=== PATIENT | female | born 1975 | race Caucasian/White ===

== ENCOUNTER 2018-05-14 00:26 | Emergency (ER) | payer OTHER ==
[~2018-05-14] VITALS: Ht 180.3 cm; Wt 49.9 kg
[2018-05-14] MEDS ORDERED: ASA5UEC PO (00:38)
[2018-05-14] MEDS ORDERED: MOBIC15 MG PO (01:30)
[2018-05-14 01:56] VITALS: BP 108/67
== END 2018-05-14 01:57 | disposition home or self-care (01) ==
LOC: ER 00:26
DX: S61.214A Laceration without foreign body of right ring finger without damage to nail, initial encounter (principal); Z98.890 Other specified postprocedural states; W23.1XXA Caught, crushed, jammed, or pinched between stationary objects, initial encounter; Y92.89 Other specified places as the place of occurrence of the external cause; Y99.0 Civilian activity done for income or pay; Y99.8 Other external cause status

== ENCOUNTER 2020-04-19 18:59 | Emergency (ER) | payer OTHER ==
[~2020-04-19] VITALS: Ht 152.4 cm; Wt 49.9 kg
--- NOTE | ~2020-04-19 | EMS ---
[address] [address] EMS Patient Care Report Name: ERICALENO Room #: DEP Ginger#: [id number] Admission: 04/19/20 Attend Phys: Discharge: 04/19/20 Date of : 73 Report #: [id number] THIS REPORT FOR: //name// Report Transmitted: 04/20/2020 05:46 EMS Care Summary [id number] @ 04/19/2020 18:22 Incident Location [facility] [address] [place] [id number] Patient LENO MALDONADO Female, 44 Years 1975 Patient Address [address] [place] [id number] Patient History Anxiety, Patient Allergies No known allergies, Patient Medications None Reported, Chief Complaint shortness of breath Disposition Transported No Lights/[place] Reason Chest Pain (Non-Traumatic) Transported To [facility] Narrative DISPATCHED EMERGENTE RESPONDED EMERGENT ON CHEST PAIN. ARRIVED ON SCENE WITHOUT INCIDENT. [address] [address] EMS Patient Care Report Name: LENO MALDONADO Room #: DEP ER Ginger#: [id number] Admission: 04/19/20 Attend Phys: Discharge: 04/19/20 Date of : 73 Report #: [id number] UPON ARRIVAL JOSUE WAS FLAGGING DOWN EMS. PATIENT WAS FOUND SEATED IN VEHICLE ON SHOULDER OF ROAD. PATIENT STATES SHE DOES NOT SPEAK VERY MUCH KENYAN. THAI IS PRIMARY LANGUAGE. PATIENT APPEARS TO BE VERY ANXIOUS AT THIS TIME. CARPAL PEDAL SPASMS ARE NOTED IN PATIENTS HANDS. PATIENT IS ALSO BREATHING SHALLOW AND RAPID. PATIENT STATES SHE IS FEELING DIZZY. DENIES CHEST PAIN, NAUSEA, VOMITING DIARRHEA. PATIENT REPORTS SHORTNESS OF BREATH X2 DAYS THAT GOT WORSE THIS EVENING WHILE DRIVING. PATIENT ASSISTED AND PIVOTED ONTO STRETCHER. SECURED WITH ALL RESTRAINTS AND TAKEN TO AMBULANCE. PD STATES THAT HAS BEEN NOTIFED AND IS ON THE WAY TO [employer]AC[employer] GRADER CHILD. PD WILL WAIT WITH CHILD UNTIL PARENT ARRIVES. IN AMBULANCE PATIENTS BREATHING IS COACHED AND SLOWED. BREATHING DOES IMPROVE. PATIENT STILL APPEARS ANXIOUS. IS CONTACTED BY CELL PHONE AND SPEAKS KENYAN. REPORTS THAT PATIENT HAS A HISTORY OF ANXIETY AND THIS HAS HAPPENED IN THE PAST. ADVISED OF HOSPITAL CHANGE AND CONFIRMED LOCATION OF CHILD WITH PD AT THIS TIME. PATIENT VITALS MONITORED THROUGHOUT TRANSPORT. VITALS IMPROVE AND REMAIN WITHIN NORMAL LIMITS. PATIENT APPEARS MORE CALM WITH ADMINISTRATION OF OXYGEN COMFORT MEASURE. RADIO REPORT CALLED TO ED. UPON ARRIVAL TO ED PATIENT IS TAKEN TO ED ROOM 1 WHERE PATIENT REPORT IS GIVEN DIRECTLY TO RN AT BEDSIDE. PATIENT ABLE TO SCOOT FROM STRETCHER TO BED WITHOUT DIFFICULTY. PATIENT CARE TRANSFERRED DIRECTLY TO RN AT BEDSIDE. PATIENT IN STABLE CONDITION AT TRANSFER OF CARE. BELONGINGS LEFT WITH PATIENT. Initial Vitals @18:33 @18:37P: 95,EtCO2: 21,SpO2: 97, @18:38P: 93,R: 24,EtCO2: 21,SpO2: 95, @18:30P: 106,SpO2: 100, @18:37 @18:32 @18:46P: 80,Pain: 0/10,GCS: 15,SpO2: 100, @18:48P: 88,R: 20,BP: 126/84,Pain: 0/10,GCS: 15,EtCO2: 20,SpO2: 100,Revised Trauma: 12, @18:33P: 83,R: 21,EtCO2: 20, @18:32P: 110,R: 19,EtCO2: 19,SpO2: 98, @18:30P: 93,R: 28,BP: 130/80,GCS: 15,Glucose: 176,SpO2: 100,Revised Trauma: 12, @18:34P: 96,R: 18,EtCO2: 21, @18:43P: 247,R: 20,EtCO2: 21,SpO2: 97, @18:50P: 84,R: 23,EtCO2: 21,SpO2: 100, Assessments @18:27MENTAL:Time Oriented,Person Oriented,Place Oriented,Event Oriented,SKIN:HEENT:Eyes: Left Pupil: 4-mm,Eyes: Right Pupil: 4-mm,Head/Face: [address] [address] EMS Patient Care Report Name: LENO MALDONADO Room #: DEP Ginger#: [id number] Admission: 04/19/20 Attend Phys: Discharge: 04/19/20 Date of : 73 Report #: [id number] No Abnormalities,LUNG SOUNDS:General: No Abnormalities,ABDOMEN:General: No Abnormalities,PELVIS//GI:No Abnormalities,EXTREMITIES:Left Arm: No Abnormalities,Right Arm: No Abnormalities,Left Leg: No Abnormalities,Right Leg: No Abnormalities,PULSE:NEURO:No Abnormalities, Impression Anxiety reaction/Emotional upset Procedures @18:30Oxygen FlowRate: 2 Device: CO2 Nasal Cannula Response: ImprovedSucceeded@18:27ALS AssessmentResponse: UnchangedSucceeded@18:31Saline Lock 0cc (18 ga) Site: Antecubital-LeftResponse: UnchangedFailed@18:3712-Lead ECGResponse: Unchanged@18:3312-Lead ECGResponse: UnchangedSucceeded@18:3212-Lead ECGResponse: UnchangedSucceeded Timeline 18:21,Call Received 18:21,Psap Call 18:22,Dispatched 18:24,En Route 18:26,Initial Responder On Scene 18:26,On Scene 18:27,At Patient 18:27,ALS Assessment,Response: UnchangedSucceeded, 18:30,Oxygen FlowRate: 2 Device: CO2 Nasal Cannula Response: ImprovedSucceeded, 18:30,BP: / M,PULSE: 106,RR: R,SPO2: 100 Ox,ETCO2: ,BG: ,PAIN: ,GCS: , 18:30,BP: 130/80 M,PULSE: 93,RR: 28 R,SPO2: 100 Ox,ETCO2: ,B,PAIN: ,GCS: 15, 18:31,Saline Lock 0cc 18 ga Site: Antecubital-Left,Response: UnchangedFailed, 18:32,12-Lead ECG,Response: UnchangedSucceeded, 18:32,BP: / M,PULSE: ,RR: R,SPO2: Ox,ETCO2: ,BG: ,PAIN: ,GCS: , 18:32,BP: / M,PULSE: 110,RR: 19 R,SPO2: 98 Ox,ETCO2: 19 ,BG: ,PAIN: ,GCS: , 18:33,BP: / M,PULSE: 83,RR: 21 R,SPO2: Ox,ETCO2: 20 ,BG: ,PAIN: ,GCS: , 18:33,12-Lead ECG,Response: UnchangedSucceeded, 18:33,BP: / M,PULSE: ,RR: R,SPO2: Ox,ETCO2: ,BG: ,PAIN: ,GCS: , 18:34,BP: / M,PULSE: 96,RR: 18 R,SPO2: Ox,ETCO2: 21 ,BG: ,PAIN: ,GCS: , 18:34,Depart Scene 18:37,12-Lead ECG,Response: Unchanged 18:37,BP: / M,PULSE: ,RR: R,SPO2: Ox,ETCO2: ,BG: ,PAIN: ,GCS: , 18:37,BP: / M,PULSE: 95,RR: R,SPO2: 97 Ox,ETCO2: 21 ,BG: ,PAIN: ,GCS: , 18:38,BP: / M,PULSE: 93,RR: 24 R,SPO2: 95 Ox,ETCO2: 21 ,BG: ,PAIN: ,GCS: , 18:43,BP: / M,PULSE: 247,RR: 20 R,SPO2: 97 Ox,ETCO2: 21 ,BG: ,PAIN: ,GCS: , 18:46,BP: / M,PULSE: 80,RR: R,SPO2: 100 Ox,ETCO2: ,BG: ,PAIN: 0,GCS: 15, 18:48,BP: 126/84 M,PULSE: 88,RR: 20 R,SPO2: 100 Ox,ETCO2: 20 ,BG: ,PAIN: 0,GCS: 15, 18:50,BP: / M,PULSE: 84,RR: 23 R,SPO2: 100 Ox,ETCO2: 21 ,BG: ,PAIN: ,GCS: , [address] [address] EMS Patient Care Report Name: LENO MALDONADO Room #: DEP TONYA Miles#: [id number] Admission: 04/19/20 Attend Phys: Discharge: 04/19/20 Date of : 73 Report #: [id number] 18:55,At Destination 19:10,Call Closed Disclaimer v1.1 Copyright 2020 [employer] This EMS Care Summary contains data elements from the applicable legal record (which may be displayed differently). It is designed to provide pertinent information for the following purposes: continuity of care, clinical quality, and state data reporting. The complete legal record is available to ED staff and administrators of the receiving hospital in [employer]'s Patient Tracker. All data is provided "as is."
[~2020-04-19 18:59] MED LIST: ASA5UEC PO; MOBIC15 MG PO
[2020-04-19 19:47] LABS: ABSOLUTE NEUTROPHILS 7.3 thou/uL (1.4-8.2); BASOPHILS 0.7 % (0.0-2.0); EOSINOPHILS 0.4 % (0.0-3.0); HEMATOCRIT 41.3 % (37.0-47.0); HEMOGLOBIN 13.9 gm/dL (12.0-15.0); LYMPHOCYTES 23.3 % (24.0-44.0); MCH 31.4 pg (26.0-34.0); MCHC 33.8 g/dL (28.0-37.0); MCV 93.1 fL (80.0-100.0); MONOCYTES 4.6 % (1.0-8.0); PLATELET COUNT 320 thou/uL (150-400); RBC 4.44 mil/uL (4.20-5.00); RDW 13.2 % (10.5-14.5); WBC 10.3 thou/uL (4.0-11.0)
[2020-04-19 19:53] LABS: ANION GAP 18 mmol/L (7-16); BUN 10 mg/dL (7-18); CALCIUM 9.8 mg/dL (8.5-10.1); CHLORIDE 99 mmol/L (98-107); CO2 21 mmol/L (21-32); CREATININE 0.9 mg/dL (0.6-1.0); GLUCOSE 193 mg/dL (74-106); POTASSIUM 3.5 mmol/L (3.5-5.1); SODIUM 138 mmol/L (136-145)
[2020-04-19 20:04] LABS: ALBUMIN 3.9 g/dL (3.4-5.0); MAGNESIUM 1.9 mg/dL (1.8-2.4); SGOT 30 U/L (15-37); SGPT 25 U/L (30-65); TOTAL BILIRUBIN 0.3 mg/dL (0.2-1.0); TOTAL PROTEIN 7.9 g/dL (6.4-8.2); TROPONIN-I <0.06 ng/mL (<0.06)
[2020-04-19 20:43] LABS: URINE BILIRUBIN NEGATIVE (Negative); URINE BLOOD NEGATIVE (Negative); URINE CLARITY CLEAR; URINE COLOR YELLOW; URINE GLUCOSE-RANDOM* 2+ (Negative); URINE KETONES 1+ (Negative); URINE LEUKOCYTES-REFLEX NEGATIVE (Negative); URINE NITRITE-REFLEX NEGATIVE (Negative); URINE PROTEIN (DIPSTICK) NEGATIVE (Negative); URINE SPECIFIC GRAVITY 1.025 (1.005-1.035); URINE UROBILINOGEN 0.2 E.U./dl (0.2-1.0)
[2020-04-19] MEDS ORDERED: ATIVAN0.5 M1 PO (21:37)
[2020-04-19 21:38] LABS: CREATININE 0.5 mg/dL (0.6-1.0)
[2020-04-19 21:41] LABS: CALCIUM 7.4 mg/dL (8.5-10.1)
[2020-04-19 21:42] LABS: POTASSIUM 3.7 mmol/L (3.5-5.1)
[2020-04-19 21:52] VITALS: BP 108/61
--- NOTE | 2020-04-20 11:20 | EKG ---
[facility] [place] [address] ELECTROCARDIOGRAM REPORT Name: LENO MALDONADO Room #: DEP [facility]#: [id number] Admission: 04/19/20 Attend Phys: Discharge: 04/19/20 Date of : 73 Report #: [id number] THIS REPORT FOR: cc: [facility] - Clinic physician unknown [facility] - Clinic physician unknown Bob Guerra MD [facility] ~ THIS REPORT FOR: //name// [facility] ED Test Date: 2020-04-19 Test Time: 19:17:02 Pat Name: LENO MALDONADO Department: Room: Gender: F Color Control [facility] 1975 Requested By: Noé Major Order Number: [id number] MD: Bob Guerra Measurements Intervals [place] Rate: 73 P: 57 WA: 144 QRS: 40 QRSD: 95 T: 34 QT: 405 QTc: 447 Interpretive Statements Sinus rhythm Probable left atrial enlargement Baseline wander in lead(s) V3 No previous ECG available for comparison Electronically Signed On 04-20-2020 11:20:35 CDT by Bob Guerra [email or web address] <ELECTRONICALLY SIGNED> By: Bob Guerra MD, FACC 04/20/20 1120 16 16 Bob Guerra MD, FACC /EPI
== END 2020-04-19 21:56 | disposition home or self-care (01) ==
LOC: ER 18:59
PROVIDERS: Physician Assistant
DX: F41.9 Anxiety disorder, unspecified (principal); Z79.82 Long term (current) use of aspirin; Z79.899 Other long term (current) drug therapy